=== PATIENT | male | born 1955 | race Caucasian/White ===

== ENCOUNTER 2016-09-22 07:45 | Inpatient (IN) | payer BC ==
--- NOTE | 2016-09-08 11:10 | DIAGNOSTIC IMAGING REPORT ---
CHEST 2 VIEWS ROUTINE CLINICAL HISTORY: Preoperative chest COMPARISON STUDY: No previous studies for comparison. FINDINGS: The cardiac and mediastinal contours are normal. There is no evidence of focal pulmonary consolidation. There is no evidence of failure. No pleural effusions are visualized.[ IMPRESSION: No active disease in the chest. Electronically signed by: Clifford Krause M.D. 09/08/2016 11:08 AM Dictated Date/Time: 09/08/2016 11:08 AM
[2016-09-08 12:24] LABS: BASO % 0.3 %; BASO ABS # 0.02 K/uL (0-0.2); COMPLETE YES; EOS % 1.8 %; HEMATOCRIT 46.3 % (42-52); IG% 0.1 %; LYMPH % 28.7 %; LYMPH ABS # 1.92 K/uL (1.2-3.4); MEAN CELL VOLUME 95.5 fL (80-100); MEAN CORPUSCULAR HEMOGLOBIN 33.2 pg (25-34); MEAN CORPUSCULAR HGB CONC 34.8 g/dl (32-36); MEAN PLATELET VOLUME 10.1 fL (7.4-10.4); MONO % 7.8 %; NEUT % 61.3 %; PLATELET COUNT 247 K/uL (130-400); RED BLOOD COUNT 4.85 M/uL (4.7-6.1)
[2016-09-08 12:31] LABS: URINE APPEARANCE CLEAR (CLEAR); URINE BILIRUBIN NEG (NEG); URINE COLOR YELLOW; URINE EPITHELIAL CELL AUTO 0-5 /lpf (0-5); URINE NITRITE NEG (NEG); URINE PH 5.5 (4.5-7.5); URINE SPECIFIC GRAVITY 1.018 (1.000-1.030); UROBILINOGEN NEG (NEG)
[2016-09-08 12:39] LABS: MANUAL MICROSCOPIC REQUIRED? NO; REVIEW REQ? NO
[2016-09-08 12:51] LABS: BLOOD UREA NITROGEN 14 mg/dl (7-18); BUN/CREATININE RATIO 12.6 (10-20); CARBON DIOXIDE 31 mmol/L (21-32); CHLORIDE 107 mmol/L (98-107); GLUCOSE 94 mg/dl (70-99); POTASSIUM 3.9 mmol/L (3.5-5.1); SODIUM 144 mmol/L (136-145)
[2016-09-09 12:31] VITALS: Ht 177.8 cm; Wt 118.2 kg
--- NOTE | 2016-09-21 14:15 | HISTORY & PHYSICAL EXAMINATION ---
DATE OF ADMISSION: 09/22/2016 HISTORY OF PRESENT ILLNESS: The patient is well known to us as he has undergone prior lumbar decompression and fusion. He has continued to struggle with bilateral leg pain for many years as well as chronic back pain. He has undergone several injections with pain management. He has trialed several medications, none of which have provided relief. He denies bowel or bladder dysfunction. He has trialed physical therapy. He has had a neurology evaluation and then went for a second opinion to [facility]. He is on Neurontin for pain control. He is most comfortable lying down and alternating ice and heat. PAST MEDICAL HISTORY: The patient's medical history is significant for enlarged prostate, depression, sleep apnea, spinal stenosis, thyroid disease. PAST SURGICAL HISTORY: Significant for lumbar fusion [place] [address] Kimbrough, partial knee replacement and prostate surgery 2016. ALLERGIES: None listed. MEDICATIONS: Include: 1. Hydrochlorothiazide 25 mg a day. 2. Metoprolol 25 mg twice a day. 3. Gabapentin 600 mg t.i.d. 4. Tramadol as needed. 5. Bupropion XL 300 mg a day. 6. Synthroid 75 mcg a day. 7. Vitamin D3. 8. Vitamin C. 9. Ginkgo biloba. 10. Buspirone 30 mg a day. 11. Vitamin B12. 12. Cialis daily. 13. Mirtazapine 50 mg daily. 14. Ativan 1 mg at night. 15. Atorvastatin 10 mg a day. 16. Olanzapine 10 mg daily. SOCIAL HISTORY: He is still working as a elementary special education teacher for [employer] . FAMILY HISTORY: Significant for arthritis, cardiovascular disease, cancer, hypertension, thyroid disease. SOCIAL HISTORY: He is , drinks beer monthly. Tobacco is none. Drug use he denies. REVIEW OF SYSTEMS: Significant for anxiety, depression, leg swelling, ringing in the ears, nasal congestion, diarrhea, memory loss, muscle coordination, back pain. PHYSICAL EXAMINATION: VITAL SIGNS: 5 feet 10. HEAD, EYES, EARS, NOSE, AND THROAT: Speech appropriate. CARDIOPULMONARY: No gross abnormalities. ABDOMEN: Soft, nontender. GENITOURINARY: Deferred. NEUROLOGIC: Cranial nerves II-XII are grossly intact. MUSCULOSKELETAL: He has a well-healed lumbar incision. Strength is intact bilateral lower extremities. ASSESSMENT: Chronic leg pain and back pain. PLAN: At this point in time he has known peripheral neuropathy as well as bilateral leg pain and back pain. He is interested in pursuing a dorsal column stimulator trial with subsequent implant if this is successful. Risks, benefits, pros, cons and alternative outlined in detail. He would like to proceed with the above-mentioned planning. DANIEL
[2016-09-22] VITALS (8 sets, daily range): BP systolic 118–158; BP diastolic 74–94; PULSE 62–96; TEMP 36.3–37.1; O2SAT 93–94
[~2016-09-22] VITALS: Ht 177.8 cm; Wt 118.2 kg
[~2016-09-22 07:45] MED LIST: AMIT25TA9 PO; ASCA500 PO; ATOR10TA82 PO; BUPRTAB51 PO; BUSP30TA2 PO; CEFAZOLIN 2000 MG/60 ML D5W IV SCH; CHOL20007 PO; CYAN100020 PO; HYG/25 PO; LACTATED RINGER'S 1000ML 1,000 ML IV SCH; METO25TA56 PO; MIRT15TA2 PO; NRN/600 PO; OLAN10TA11 PO; SYN75 PO; TADA5TAB11 PO; TRAM-10 PO
[2016-09-22] MEDS ORDERED: BUPIVACAINE/EPINEPHRINE 0.5% MPF 1:200,000 30 ML VIAL ONE (08:57)
[2016-09-22] MEDS ORDERED: BACITRACIN 50000 UNIT VIAL ONE (08:57)
[2016-09-22] MEDS ORDERED: SODIUM CHLORIDE 0.9% PF 50 ML VIAL ONE (08:57)
[2016-09-22] MEDS ORDERED: FENTANYL CITRATE INJ 50 MCG/1 ML 2 ML VIAL ONE ×3 (08:58→15:02)
[2016-09-22] MEDS ORDERED: MIDAZOLAM HCL 1 MG/ML 2ML VIAL ONE (08:58)
[2016-09-22] MEDS ORDERED: ATROPINE SULFATE 0.1 MG/ML 5ML SYR IV PRN (09:30)
[2016-09-22] MEDS ORDERED: EpHEDrine SULFATE INJ 50 MG/ML AMP IV PRN (09:30)
[2016-09-22] MEDS ORDERED: PROMETHAZINE HCL INJ 6.25 MG in SODIUM CHLORIDE 0.9% 50ML 50 ML IV PRN (09:30)
[2016-09-22] MEDS ORDERED: ONDANSETRON INJ 2 MG/ML 2 ML VIAL IV PRN (09:30)
[2016-09-22] MEDS ORDERED: HYDROmorphone INJ 2 MG/ML SYR/VIAL ONE (10:04)
[2016-09-22] MEDS ORDERED: DEXAMETHASONE SOD INJ 4 MG/ML VIAL ONE (10:16)
[2016-09-22] MEDS ORDERED: GLYCOPYRROLATE INJ 0.2 MG/ML VIAL ONE (10:16)
[2016-09-22] MEDS ORDERED: KETOROLAC TROMETHAMINE 30 MG/ML VIAL ONE (10:16)
[2016-09-22] MEDS ORDERED: LIDOCAINE HCL 2% 2 ML VIAL (20MG/ML) ONE (10:16)
[2016-09-22] MEDS ORDERED: ONDANSETRON INJ 2 MG/ML 2 ML VIAL ONE (10:16)
[2016-09-22] MEDS ORDERED: NEOSTIGMINE METHYLSULFATE 1 MG/ML 10ML VIAL ONE (10:16)
[2016-09-22] MEDS ORDERED: PROPOFOL IV EMULSION 10 MG/ML 20 ML VIAL IV ONE (10:16)
[2016-09-22] MEDS ORDERED: ROCURONIUM BROMIDE 10 MG/ML 5 ML VIAL ONE (10:16)
[2016-09-22] MEDS ORDERED: FLOSEAL HEMOSTATIC MATRIX 5ML TOP ONE ×2 (10:21)
--- NOTE | 2016-09-22 10:31 | DIAGNOSTIC IMAGING REPORT ---
LUMBAR SPINE, INTRAOPERATIVE FLUOROSCOPY HISTORY: Pain. Bilateral stimulator placement.. FLUOROSCOPY TIME: 4 seconds. FINDINGS: Intraoperative fluoroscopy was provided for the lumbar spine. 1 fluoroscopic spot images were obtained. IMPRESSION: Fluoroscopy provided for a low thoracic stimulator placement. Electronically signed by: Christopher Bauer M.D. 09/22/2016 10:29 AM Dictated Date/Time: 09/22/2016 10:29 AM
--- NOTE | 2016-09-22 10:36 | [facility] Post Operative Brief Note ---
Immediate Operative Summary Operative Date September 22, 2016. Pre-Operative Diagnosis Chronic leg pain and back pain Post-Operative Diagnosis Chronic leg pain and back pain Procedure(s) Performed Spinal Cord Stimulator Trial Surgeon Dr. Skyler Kimbrough Director Multimedia Surgeon(s) Mendy Giraldo PA-C Estimated Blood Loss 10 Findings stenosis Specimens None per surgeon
[2016-09-22] MEDS ORDERED: DO NOT ADMINISTER PNEUMOCOCCAL VACCINE PRN ×2 (10:45)
[2016-09-22] MEDS ORDERED: ACETAMINOPHEN 325 MG TAB PO PRN (10:45)
[2016-09-22] MEDS ORDERED: LORAZEPAM INJ 1 MG in SYRINGE 0 ML IV PRN (10:45)
[2016-09-22] MEDS ORDERED: DO NOT ADMINISTER FLU VACCINE PRN ×3 (10:45)
[2016-09-22] MEDS ORDERED: ACETAMINOPHEN 500 MG TAB PO PRN (10:45)
[2016-09-22] MEDS ORDERED: LABETALOL HCL IV 5 MG/ML 20ML IV ONE (10:48)
[2016-09-22] MEDS: FENTANYL CITRATE INJ 50 MCG/1 ML 2 ML VIAL IV PRN ×3 (11:06→11:20)
[2016-09-22] MEDS ORDERED: HYDROmorphone INJ 2 MG/ML SYR/VIAL IV PRN (12:00)
--- NOTE | 2016-09-22 12:08 | Anesthesiology Progress Note ---
Anesthesia Post Op Note Date & Time September 22, 2016 at 12:07 Vital Signs Pain Intensity: 5 Vital Signs Past 12 Hours Date Time Temp Pulse Resp B/P Pulse Ox O2 Delivery O2 Flow Rate FiO2 09/22/16 11:45 37.4 79 16 140/95 94 Nasal Cannula 3 09/22/16 11:35 77 17 168/103 95 Nasal Cannula 3 09/22/16 11:25 76 17 175/108 94 Nasal Cannula 3 09/22/16 11:15 72 12 173/114 99 Mask 10 09/22/16 11:05 72 16 180/119 99 Mask 10 09/22/16 10:55 70 12 191/126 99 Mask 10 09/22/16 10:46 37.2 74 16 177/107 99 Mask 10 09/22/16 08:07 36.6 62 18 141/94 Notes Mental Status: alert / awake / arousable, participated in evaluation Pt Amnestic to Procedure: Yes Nausea / Vomiting: adequately controlled Pain: adequately controlled Airway Patency, RR, SpO2: stable & adequate BP & HR: stable & adequate Hydration State: stable & adequate Anesthetic Complications: no major complications apparent Patient required Labetalol and Hydralazine in pacu to manage high diastolic BP. Bladder scan was done rule out distended bladder. Patient was asymptomatic. At the time of disposition to floor his diastolic BP was managed <100 mmHg
[2016-09-22] MEDS: SODIUM CHLORIDE 0.9% 1000ML 1,000 ML IV SCH (12:31)
--- NOTE | 2016-09-22 12:33 | OPERATIVE REPORT ---
DATE OF OPERATION: 09/22/2016 PREOPERATIVE DIAGNOSES: Chronic back and bilateral leg pain. POSTOPERATIVE DIAGNOSIS: Same. PROCEDURE PERFORMED: 1. T10 laminotomy. 2. Placement of 16 lead dorsal column stimulator paddle with temporary leads. SURGEON: Dr. Skyler Kimbrough. SWIMMING POOL MAINTENANCE SUPERVISOR: Mendy Giraldo PA-C. Due to the complex nature of the procedure, the entire surgery was performed with the diversional therapist's assistant of Mendy Giraldo PA-C. The assistant manager retail, under direct supervision, was involved in the actual performance of all aspects of the surgical procedure including hemostasis, tissue retraction and incision, instrument management, patient positioning, and wound closure. ANESTHESIA: General. DISPOSITION: The patient awakened and taken to PACU in stable condition. HISTORY OF PATIENT'S PROBLEMS: This is a 61-year-old male well known to me that presents with above-mentioned diagnosis. After failing extensive course of nonoperative care, elected to undergo the above-mentioned procedure. Risks, benefits, pros, cons, and alternatives were outlined in detail preoperatively. OPERATION AND FINDINGS: PROCEDURE: The patient was met preoperatively, case discussed and all questions were addressed. At that point the patient was taken back to operative suite and after undergoing successful general intubation by the department of anesthesia was placed in prone position on Shilo table atop Brett frame. All bony prominences were well padded and the eyes were inspected to ensure there was no external pressure placed upon them. At this point the thoracolumbar spine was prepped and draped in normal sterile fashion. With the assistance of fluoroscopy identified the T10-T11 region of the spine and elected to go with T11 laminotomy so the paddle lead would cover the most vital components of the cord to control his back and leg symptoms. Sharp dissection with the assistance of Bovie cautery was performed down to and exposing the T11-T12 disc interlaminar space. It then performed a T11 laminotomy wide enough to place a 16 dorsal column stimulator paddle lead in the canal. This was passed approximately, verified its position with fluoroscopy such that the center portion of the paddle was directly across the T9-T10 disc space. After this was complete, the permanent leads were sewn into place with silk ties. We then attached temporary leads to the prior leads, ran these to the left flank through a trocar, tested the leads to ensure they were working appropriately and then buried the permanent leads in the T11 laminotomy site closing this incision. External leads were placed. Sterile dressings were placed both across external leads and the midline incision. The patient was then awakened and taken to PACU in stable condition. I attest to the content of the Intraoperative Record and any orders documented therein. Any exceptio ns are noted below.
[2016-09-22] MEDS: TRAMADOL HCL 50 MG TAB PO PRN (13:16)
[2016-09-22] MEDS: GABAPENTIN 600 MG TAB PO SCH ×2 (13:23→22:05)
[2016-09-22] MEDS ORDERED: CEFAZOLIN SOD 1 GM VIAL ONE (14:39)
[2016-09-22] MEDS: HYDROmorphone INJ 1 MG/ML SYR IV PRN (15:43)
[2016-09-22] MEDS: OXYCODONE HCL IR 5 MG TAB (IMMEDIATE RELEASE) PO PRN ×2 (16:47→17:02)
[2016-09-22] MEDS: CEFAZOLIN IV 2,000 MG in DEXTROSE 5% 50ML 50 ML IV SCH (18:15)
[2016-09-22] MEDS: DOCUSATE SODIUM 100 MG CAP PO SCH (22:05)
[2016-09-22] MEDS: AMITRIPTYLINE HCL 25 MG TAB PO SCH (22:05)
[2016-09-22] MEDS: METOPROLOL TARTRATE 25 MG TAB PO SCH (22:05)
[2016-09-23 00:20] VITALS: BP 130/75; PULSE 84; TEMP 36.8; O2SAT 96
[2016-09-23] MEDS: SODIUM CHLORIDE 0.9% 1000ML 1,000 ML IV SCH (00:27)
[2016-09-23] MEDS: HYDROmorphone INJ 1 MG/ML SYR IV PRN ×2 (01:56→15:22)
[2016-09-23] MEDS: CEFAZOLIN IV 2,000 MG in DEXTROSE 5% 50ML 50 ML IV SCH ×2 (01:59→09:45)
[2016-09-23 03:20] VITALS: BP 130/80; PULSE 76; TEMP 36.9; O2SAT 89
[2016-09-23 03:23] VITALS: O2SAT 94
[2016-09-23 05:15] VITALS: BP 155/99; PULSE 70; TEMP 36.7; O2SAT 96
[2016-09-23] MEDS: LEVOTHYROXINE 75 MCG TAB PO SCH (05:51)
[2016-09-23] MEDS: OXYCODONE HCL IR 5 MG TAB (IMMEDIATE RELEASE) PO PRN ×3 (05:52→21:13)
--- NOTE | 2016-09-23 08:52 | PROGRESS NOTE ---
DATE: 09/23/2016 HISTORY OF PRESENT ILLNESS: He is having some difficulty with urination today and some modest urinary retention. He has some lower abdominal discomfort. He is using a walker to ambulate. He states his legs feel a little wobbly to him. He denies any numbness or tingling in the lower extremities. Denies any leg pain or significant back discomfort. PHYSICAL EXAMINATION: He has excellent strength to testing, normal reflexes, no clonus. He is walking with a walker. ASSESSMENT: Status post placement of a spinal cord stimulator trail. PLAN: At this time, we will have the spinal cord stimulator tech see the patient today to see if there is some adjustments to the paddle will relieve his symptoms and decrease abdominal pain. We may have to consider removal of the implant if he does not improve tomorrow. He is n.p.o. after midnight. We are hoping that we will be able to progress with an implant. He is very anxious to see if this would improve his back and leg pain.
[2016-09-23] MEDS: OLANZAPINE 10 MG TAB PO SCH (09:04)
[2016-09-23] MEDS: ATORVASTATIN 10 MG TAB PO SCH (09:05)
[2016-09-23] MEDS: DOCUSATE SODIUM 100 MG CAP PO SCH ×2 (09:05→21:11)
[2016-09-23] MEDS: METOPROLOL TARTRATE 25 MG TAB PO SCH ×2 (09:05→21:11)
[2016-09-23] MEDS: BusPIRone 15 MG TAB PO SCH (09:05)
[2016-09-23] MEDS: GABAPENTIN 600 MG TAB PO SCH ×3 (09:06→21:11)
[2016-09-23] MEDS: BuPROPion XL 300 MG TABCR PO SCH (09:06)
--- NOTE | 2016-09-23 10:41 | Anesthesiology Progress Note ---
Anesthesia Post Op Note Date & Time September 23, 2016 at 10:41 Vital Signs Vital Signs Past 12 Hours Date Time Temp Pulse Resp B/P Pulse Ox O2 Delivery O2 Flow Rate FiO2 09/23/16 07:30 Room Air 09/23/16 05:15 36.7 70 16 155/99 96 Room Air 09/23/16 03:23 94 Nasal Cannula 2.0 09/23/16 03:20 36.9 76 16 130/80 89 Room Air 09/23/16 00:25 Nasal Cannula 2.0 09/23/16 00:20 36.8 84 16 130/75 96 Nasal Cannula 2.0 Notes Mental Status: alert / awake / arousable, participated in evaluation Pt Amnestic to Procedure: Yes Nausea / Vomiting: adequately controlled Pain: adequately controlled Airway Patency, RR, SpO2: stable & adequate BP & HR: stable & adequate Hydration State: stable & adequate Anesthetic Complications: no major complications apparent
[2016-09-23 16:14] VITALS: BP 177/96; PULSE 69; TEMP 37.2; O2SAT 96
[2016-09-23] MEDS: AMITRIPTYLINE HCL 25 MG TAB PO SCH (21:11)
[2016-09-23] MEDS: TRAMADOL HCL 50 MG TAB PO PRN (22:23)
[2016-09-23 23:44] VITALS: BP 128/77; PULSE 82; TEMP 36.8; O2SAT 93
[2016-09-24] VITALS (7 sets, daily range): BP systolic 117–149; BP diastolic 74–90; PULSE 73–97; TEMP 36.7–37; O2SAT 90–97
[2016-09-24] MEDS: HYDROmorphone INJ 1 MG/ML SYR IV PRN ×2 (00:14→05:47)
[2016-09-24] MEDS: LEVOTHYROXINE 75 MCG TAB PO SCH (05:45)
[2016-09-24] MEDS ORDERED: BISACODYL 10 MG SUPP PR PRN (06:00)
--- NOTE | 2016-09-24 07:13 | History & Physical Bridge Note ---
H&P Re-Evaluation Bridge Note: I have examined the patient, reviewed the History & Physical and in the interval since the performance of the History & Physical I have noted the following changes of clinical significance: No changes noted revision trial possible removal of stim.
[2016-09-24] MEDS ORDERED: MIDAZOLAM HCL 1 MG/ML 2ML VIAL ONE ×2 (07:53→09:17)
[2016-09-24] MEDS ORDERED: FENTANYL CITRATE INJ 50 MCG/1 ML 2 ML VIAL ONE ×2 (07:53→09:17)
[2016-09-24] MEDS ORDERED: CEFAZOLIN IV 2,000 MG/60 ML D5W IV ONE (08:17)
[2016-09-24] MEDS ORDERED: BUPIVACAINE/EPINEPHRINE 0.5% MPF 1:200,000 30 ML VIAL ONE ×2 (08:37→08:58)
[2016-09-24] MEDS ORDERED: BACITRACIN 50000 UNIT VIAL ONE (08:37)
[2016-09-24] MEDS ORDERED: EpHEDrine SULFATE INJ 50 MG/ML AMP IV PRN (08:45)
[2016-09-24] MEDS ORDERED: ONDANSETRON INJ 2 MG/ML 2 ML VIAL IV PRN ×2 (08:45→10:45)
[2016-09-24] MEDS ORDERED: HYDROmorphone INJ 1 MG/ML SYR IV PRN ×2 (08:45→10:45)
[2016-09-24] MEDS ORDERED: FENTANYL CITRATE INJ 50 MCG/1 ML 2 ML VIAL IV PRN (08:45)
[2016-09-24] MEDS ORDERED: ATROPINE SULFATE 0.1 MG/ML 5ML SYR IV PRN (08:45)
[2016-09-24] MEDS: BuPROPion XL 300 MG TABCR PO SCH (09:00)
[2016-09-24] MEDS: ATORVASTATIN 10 MG TAB PO SCH (09:00)
[2016-09-24] MEDS: GABAPENTIN 600 MG TAB PO SCH ×3 (09:00→21:17)
[2016-09-24] MEDS: DOCUSATE SODIUM 100 MG CAP PO SCH ×2 (09:00→21:17)
[2016-09-24] MEDS: BusPIRone 15 MG TAB PO SCH (09:00)
[2016-09-24] MEDS: POLYETHYLENE (MIRALAX) 17 GM PACK PO SCH (09:00)
[2016-09-24] MEDS: OLANZAPINE 10 MG TAB PO SCH (09:00)
[2016-09-24] MEDS: METOPROLOL TARTRATE 25 MG TAB PO SCH ×2 (09:00→21:17)
[2016-09-24] MEDS ORDERED: HYDROmorphone INJ 2 MG/ML SYR/VIAL ONE ×2 (09:23→10:52)
[2016-09-24] MEDS ORDERED: FLOSEAL HEMOSTATIC MATRIX 10ML TOP ONE (10:35)
--- NOTE | 2016-09-24 10:42 | [facility] Operative Report ---
Operative Report Operative Date September 24, 2016. Pre-Operative Diagnosis Chronic back and leg pain Surgeon Dr. Kimbrough Fruit Harvest Worker Surgeon(s) Prem Whaley PA-C Estimated Blood Loss 10 Findings stenosis Specimens None per surgeon I attest to the content of the Intraoperative Record and any orders documented therein. Any exceptions are noted below.
[2016-09-24] MEDS ORDERED: ACETAMINOPHEN 500 MG TAB PO PRN (10:45)
[2016-09-24] MEDS ORDERED: ACETAMINOPHEN 325 MG TAB PO PRN (10:45)
[2016-09-24] MEDS ORDERED: MAGNESIUM HYDROXIDE SUSP 30 ML UDC PO PRN (10:45)
[2016-09-24] MEDS ORDERED: DO NOT ADMINISTER FLU VACCINE PRN ×3 (10:45)
[2016-09-24] MEDS ORDERED: LORAZEPAM 1 MG TAB PO PRN (10:45)
[2016-09-24] MEDS ORDERED: LORAZEPAM INJ 1 MG in SYRINGE 0 ML IV PRN (10:45)
[2016-09-24] MEDS ORDERED: OXYCODONE HCL IR 5 MG TAB (IMMEDIATE RELEASE) PO PRN (10:45)
[2016-09-24] MEDS ORDERED: DO NOT ADMINISTER PNEUMOCOCCAL VACCINE PRN ×2 (10:45)
--- NOTE | 2016-09-24 10:45 | DIAGNOSTIC IMAGING REPORT ---
INTRAOPERATIVE RADIOGRAPH CLINICAL HISTORY: Spinal cord stimulator lead placement. Fluoroscopy time: 4 seconds. FINDINGS: A single spot fluoroscopic view of the lower thoracic spine is presented. A spinal stimulator lead projects over the lower thoracic spine. IMPRESSION: Intraoperative image from spinal stimulator lead placement as above. See operative report for detailed findings. Electronically signed by: Martinez John M.D. 09/24/2016 10:44 AM Dictated Date/Time: 09/24/2016 10:42 AM
[2016-09-24] MEDS ORDERED: METOPROLOL TARTRATE 1 MG/ML VIAL ONE (10:49)
[2016-09-24] MEDS ORDERED: ONDANSETRON INJ 2 MG/ML 2 ML VIAL ONE (10:49)
[2016-09-24] MEDS ORDERED: KETOROLAC TROMETHAMINE 30 MG/ML VIAL ONE (10:49)
--- NOTE | 2016-09-24 11:24 | OPERATIVE REPORT ---
DATE OF OPERATION: 09/24/2016 PREOPERATIVE DIAGNOSIS: Chronic persistent back pain with spinal cord stimulator trial. POSTOPERATIVE DIAGNOSIS: Same. PROCEDURE PERFORMED: 1. Revision spinal cord stimulator trial. 2. Thoracic decompression T9-10, T10-11, T11-12. 3. Placement of 16 lead stimulator paddle. SURGEON: Dr. Skyler Kimbrough. ACCT EXEC: Evangelist Whaley PA-C. Due to the complex nature of the procedure, the entire surgery was performed with the business support assistant of Evangelist Whaley PA-C. The physicians assistant, under direct supervision, was involved in the actual performance of all aspects of the surgical procedure including hemostasis, tissue retraction and incision, instrument management, patient positioning, and wound closure. ANESTHESIA: Local with sedation. DISPOSITION: The patient awakened and taken to PACU in stable condition. HISTORY OF PATIENT'S PROBLEMS: This is a 61-year-old male that is status post dorsal column stimulator trial on Tuesday. Unfortunately, postoperatively he began experiencing some coordination deficits in his legs though the stim was appropriately covering his pain patterns. Upon discussion, we elected to trial another attempt at the implant at this time performing a wide multilevel decompression so that there is additional space for the trial paddle lead. I agree with this plan. We elected to do this under sedation so we could converse with him throughout the procedure. Risks, benefits, pros, cons, and alternatives were outlined in detail preoperatively. OPERATION AND FINDINGS: PROCEDURE: The patient was met preoperatively and the case discussed and all questions were addressed. At that point the patient back to operative suite and after undergoing modest sedation was placed in prone position on Shilo table on top of the Brett frame. All bony prominences were well padded and the eyes were inspected to ensure there was no external pressure placed upon them. At this point the thoracic spine was prepped and draped in normal sterile fashion. We then infiltrated the skin with lidocaine with epinephrine from T9-T12. We did utilize a portion of the previous incision site and extended this proximally to T9. We then exposed lamina of 9, 10, 11, 12. I removed the previously placed 16 lead paddle, extended the laminotomy site at 11-12 proximally leaving approximately 4 mm of bony bridge of the lamina of T11. I then performed a complete laminectomy of T10 to the facets bilaterally and partial laminectomy of T9. This allowed us to place the 16 lead paddle lead in position being held down to a small bony in the tip of the paddle lead just under the lamina of T9. We tested it several times with the patient, he had excellent results. The leads were then sewn into position, a 10 round BEE drain inserted. Incision was closed with 1-0 Vicryl in the fascia, 2-0 Vicryl subcutaneously, 4-0 Monocryl for final skin closure. Steri-Strips and sterile dressing was placed. The patient taken to PACU in a stable condition. I attest to the content of the Intraoperative Record and any orders documented therein. Any exceptio ns are noted below.
--- NOTE | 2016-09-24 11:54 | Anesthesiology Progress Note ---
Anesthesia Post Op Note Date & Time September 24, 2016 at 11:55 Vital Signs Pain Intensity: 0 Vital Signs Past 12 Hours Date Time Temp Pulse Resp B/P Pulse Ox O2 Delivery O2 Flow Rate FiO2 09/24/16 11:45 110/74 09/24/16 11:42 75 11 96 09/24/16 11:42 69 10 97 09/24/16 11:40 127/72 09/24/16 11:37 73 14 09/24/16 11:37 73 14 96 09/24/16 11:35 118/83 09/24/16 11:31 70 12 09/24/16 11:31 70 12 96 09/24/16 11:30 128/77 09/24/16 11:27 36.6 72 16 128/77 96 Nasal Cannula 2 09/24/16 11:25 71 15 96 09/24/16 11:25 71 20 126/87 96 09/24/16 11:24 71 17 95 09/24/16 11:24 72 17 09/24/16 11:20 131/87 09/24/16 11:15 124/88 09/24/16 11:14 74 21 95 09/24/16 11:14 73 17 96 09/24/16 11:10 130/87 09/24/16 11:05 126/74 09/24/16 11:04 36.4 71 16 132/94 97 Nasal Cannula 2 09/24/16 11:04 71 13 09/24/16 11:04 71 13 132/94 98 09/24/16 07:15 Room Air 09/24/16 07:11 36.7 73 19 127/86 09/24/16 00:15 Room Air Notes Mental Status: alert / awake / arousable, participated in evaluation Pt Amnestic to Procedure: Yes Nausea / Vomiting: adequately controlled Pain: adequately controlled Airway Patency, RR, SpO2: stable & adequate BP & HR: stable & adequate Hydration State: stable & adequate Anesthetic Complications: no major complications apparent
[2016-09-24] MEDS: SODIUM CHLORIDE 0.9% 1000ML 1,000 ML IV SCH ×2 (11:59→23:34)
[2016-09-24] MEDS: DEXAMETHASONE INJ 6 MG in SYRINGE 0 ML IV SCH ×2 (13:32→22:02)
[2016-09-24] MEDS: CEFAZOLIN IV 2,000 MG in DEXTROSE 5% 50ML 50 ML IV SCH ×2 (16:05→23:34)
[2016-09-24] MEDS ORDERED: DOCUSATE SODIUM 100 MG CAP PO SCH (21:00)
[2016-09-24] MEDS: AMITRIPTYLINE HCL 25 MG TAB PO SCH (21:17)
[2016-09-24] MEDS: TRAMADOL HCL 50 MG TAB PO PRN (22:09)
[2016-09-24] MEDS: OXYCODONE HCL IR 5 MG TAB (IMMEDIATE RELEASE) PO PRN (23:53)
[2016-09-25 02:50] VITALS: BP 152/89; PULSE 72; TEMP 37; O2SAT 93
[2016-09-25] MEDS: DEXAMETHASONE INJ 6 MG in SYRINGE 0 ML IV SCH (05:25)
[2016-09-25] MEDS: BISACODYL 5 MG TABEC PO PRN (05:26)
[2016-09-25] MEDS: OXYCODONE HCL IR 5 MG TAB (IMMEDIATE RELEASE) PO PRN (05:26)
[2016-09-25] MEDS: LEVOTHYROXINE 75 MCG TAB PO SCH (05:26)
[2016-09-25 07:30] VITALS: BP 138/92; PULSE 86; TEMP 36.5; O2SAT 92
[2016-09-25] MEDS: CEFAZOLIN IV 2,000 MG in DEXTROSE 5% 50ML 50 ML IV SCH (08:23)
[2016-09-25 08:30] VITALS: O2SAT 92
[2016-09-25] MEDS: METOPROLOL TARTRATE 25 MG TAB PO SCH ×2 (09:05→22:01)
[2016-09-25] MEDS: POLYETHYLENE (MIRALAX) 17 GM PACK PO SCH (09:05)
[2016-09-25] MEDS: DOCUSATE SODIUM 100 MG CAP PO SCH ×2 (09:05→22:01)
[2016-09-25] MEDS: GABAPENTIN 600 MG TAB PO SCH ×3 (09:06→22:02)
[2016-09-25] MEDS: ATORVASTATIN 10 MG TAB PO SCH (09:06)
[2016-09-25] MEDS: OLANZAPINE 10 MG TAB PO SCH (09:06)
[2016-09-25] MEDS: BuPROPion XL 300 MG TABCR PO SCH (09:06)
[2016-09-25] MEDS: BusPIRone 15 MG TAB PO SCH (09:07)
--- NOTE | 2016-09-25 10:31 | PROGRESS NOTE ---
DATE: 09/25/2016 DATE: 09/25/2016. SUBJECTIVE: Leg symptoms are well controlled with stimulator. He feels his leg function is markedly improved. Vital signs are stable. T-max 37.0. BEE drained 30 mL. OBJECTIVE: On exam, I did have him stand and ambulate about the room. He does use a walker, but not relying on it like he was previously. He states his legs are much stronger today. He has good strength to testing. ASSESSMENT: Status post revision dorsal column stimulator placement. PLAN: At this time, will reassess him Tuesday. If he continues to improve, we will most likely plan for permanent implant and battery placement on Tuesday.
[2016-09-25 11:35] VITALS: BP 158/93; PULSE 73; TEMP 36.5; O2SAT 93
[2016-09-25 15:38] VITALS: BP 158/92; PULSE 74; TEMP 36.8; O2SAT 93
[2016-09-25] MEDS: TRAMADOL HCL 50 MG TAB PO PRN (16:42)
[2016-09-25] MEDS: LORAZEPAM 1 MG TAB PO PRN (16:42)
[2016-09-25] MEDS: MAGNESIUM HYDROXIDE SUSP 30 ML UDC PO PRN (16:51)
[2016-09-25 19:10] VITALS: BP 168/96; PULSE 74; TEMP 37.2; O2SAT 93
[2016-09-25] MEDS: AMITRIPTYLINE HCL 25 MG TAB PO SCH (22:01)
[2016-09-26 00:03] VITALS: BP 146/86; PULSE 78; TEMP 36.5; O2SAT 93
[2016-09-26] MEDS: BISACODYL 5 MG TABEC PO PRN (05:56)
[2016-09-26] MEDS: LEVOTHYROXINE 75 MCG TAB PO SCH (05:56)
[2016-09-26] MEDS ORDERED: BISACODYL 10 MG SUPP PR PRN (06:00)
[2016-09-26] MEDS ORDERED: BISACODYL 5 MG TABEC PO PRN (06:00)
[2016-09-26 07:41] VITALS: BP 154/97; PULSE 68; TEMP 36.4; O2SAT 94
[2016-09-26] MEDS: DOCUSATE SODIUM 100 MG CAP PO SCH ×2 (09:00→21:05)
[2016-09-26] MEDS: ATORVASTATIN 10 MG TAB PO SCH (09:00)
[2016-09-26] MEDS: METOPROLOL TARTRATE 25 MG TAB PO SCH ×2 (09:00→21:05)
[2016-09-26] MEDS: BusPIRone 15 MG TAB PO SCH (09:00)
[2016-09-26] MEDS: POLYETHYLENE (MIRALAX) 17 GM PACK PO SCH (09:00)
[2016-09-26] MEDS: GABAPENTIN 600 MG TAB PO SCH ×3 (09:01→21:05)
[2016-09-26] MEDS: OLANZAPINE 10 MG TAB PO SCH (09:01)
[2016-09-26] MEDS: BuPROPion XL 300 MG TABCR PO SCH (09:01)
[2016-09-26] MEDS ORDERED: BISACODYL 10 MG SUPP PR STA (12:19)
--- NOTE | 2016-09-26 13:50 | PROGRESS NOTE ---
DATE: 09/26/2016 DATE: 09/26/2016. Mr. Trejo is improving steadily. He is ambulating quite nicely, using a walker more just for additional comfort and safety, but not relying on it. Again, leg symptoms well controlled. We had a long discussion today with his family and the patient, we are going to make him n.p.o. after midnight and plan for implantation of formal leads and battery tomorrow. He will be made n.p.o. after midnight.
[2016-09-26 15:07] VITALS: BP 111/72; PULSE 73; TEMP 36.6; O2SAT 94
[2016-09-26] MEDS: MAGNESIUM HYDROXIDE SUSP 30 ML UDC PO PRN (19:01)
[2016-09-26 21:03] VITALS: BP 125/79; PULSE 78
[2016-09-26] MEDS: AMITRIPTYLINE HCL 25 MG TAB PO SCH (21:05)
[2016-09-26 23:10] VITALS: BP 129/87; PULSE 64; TEMP 36.8; O2SAT 93
[2016-09-27] VITALS (11 sets, daily range): BP systolic 104–141; BP diastolic 65–85; PULSE 69–100; TEMP 36.5–36.7; O2SAT 89–94
[2016-09-27] MEDS: LEVOTHYROXINE 75 MCG TAB PO SCH (05:10)
[2016-09-27] MEDS ORDERED: FENTANYL CITRATE INJ 50 MCG/1 ML 2 ML VIAL ONE ×2 (06:41→08:04)
[2016-09-27] MEDS ORDERED: MIDAZOLAM HCL 1 MG/ML 2ML VIAL ONE (06:41)
--- NOTE | 2016-09-27 07:19 | Anesthesiology Progress Note ---
Anesthesia Post Op Note Date & Time September 27, 2016 at 07:19 Vital Signs Pain Intensity: 3.0 Vital Signs Past 12 Hours Date Time Temp Pulse Resp B/P Pulse Ox O2 Delivery O2 Flow Rate FiO2 09/27/16 06:32 36.7 69 16 127/84 92 Room Air 09/26/16 23:13 Room Air 09/26/16 23:10 36.8 64 18 129/87 93 Room Air 09/26/16 21:03 78 125/79 Notes Mental Status: alert / awake / arousable, participated in evaluation Pt Amnestic to Procedure: Yes Nausea / Vomiting: adequately controlled Pain: adequately controlled Airway Patency, RR, SpO2: stable & adequate BP & HR: stable & adequate Hydration State: stable & adequate Anesthetic Complications: no major complications apparent
--- NOTE | 2016-09-27 07:26 | History & Physical Bridge Note ---
H&P Re-Evaluation Bridge Note: I have examined the patient, reviewed the History & Physical and in the interval since the performance of the History & Physical I have noted the following changes of clinical significance: No changes noted battery implant
[2016-09-27] MEDS ORDERED: CEFAZOLIN IV 2,000 MG/60 ML D5W IV ONE (07:32)
[2016-09-27] MEDS ORDERED: NURSING VERBAL MED ORDER STA (07:33)
[2016-09-27] MEDS ORDERED: HYDROmorphone INJ 2 MG/ML SYR/VIAL ONE ×2 (08:04→08:27)
[2016-09-27] MEDS ORDERED: ROCURONIUM BROMIDE 10 MG/ML 5 ML VIAL ONE (08:07)
[2016-09-27] MEDS ORDERED: EpHEDrine SULFATE 50MG/5ML SYR ONE (08:07)
[2016-09-27] MEDS ORDERED: PROPOFOL IV EMULSION 10 MG/ML 20 ML VIAL IV ONE (08:07)
[2016-09-27] MEDS ORDERED: LIDOCAINE HCL 2% 2 ML VIAL (20MG/ML) ONE (08:07)
[2016-09-27] MEDS ORDERED: DEXAMETHASONE SOD INJ 4 MG/ML VIAL ONE (08:07)
[2016-09-27] MEDS ORDERED: BACITRACIN 50000 UNIT VIAL ONE (08:14)
[2016-09-27] MEDS ORDERED: BUPIVACAINE/EPINEPHRINE 0.5% MPF 1:200,000 30 ML VIAL ONE (08:14)
[2016-09-27] MEDS: BusPIRone 15 MG TAB PO SCH (08:18)
[2016-09-27] MEDS: GABAPENTIN 600 MG TAB PO SCH ×3 (08:19→20:56)
[2016-09-27] MEDS: ATORVASTATIN 10 MG TAB PO SCH (08:19)
[2016-09-27] MEDS: METOPROLOL TARTRATE 25 MG TAB PO SCH ×2 (08:19→20:56)
[2016-09-27] MEDS: DOCUSATE SODIUM 100 MG CAP PO SCH ×2 (08:19→20:56)
[2016-09-27] MEDS: BuPROPion XL 300 MG TABCR PO SCH (08:19)
[2016-09-27] MEDS: POLYETHYLENE (MIRALAX) 17 GM PACK PO SCH (08:19)
[2016-09-27] MEDS: OLANZAPINE 10 MG TAB PO SCH (08:19)
[2016-09-27] MEDS ORDERED: SODIUM CHLORIDE 0.9% 1000ML 1,000 ML IV SCH (08:22)
--- NOTE | 2016-09-27 08:22 | [facility] Operative Report ---
Operative Report Operative Date September 27, 2016. Pre-Operative Diagnosis Chronic back and leg pain Surgeon Dr. Kimbrough Bed Maker Surgeon(s) Mendy Giraldo PA-C Estimated Blood Loss 50ML Findings none Specimens A. Removed hardware (Spinal cord stimulator) I attest to the content of the Intraoperative Record and any orders documented therein. Any exceptions are noted below.
[2016-09-27] MEDS ORDERED: ONDANSETRON INJ 2 MG/ML 2 ML VIAL ONE (08:28)
[2016-09-27] MEDS ORDERED: GLYCOPYRROLATE INJ 0.2 MG/ML VIAL ONE (08:28)
[2016-09-27] MEDS ORDERED: NEOSTIGMINE METHYLSULFATE 1 MG/ML 10ML VIAL ONE (08:28)
[2016-09-27] MEDS ORDERED: KETOROLAC TROMETHAMINE 30 MG/ML VIAL ONE (08:28)
[2016-09-27] MEDS ORDERED: HYDROmorphone INJ 1 MG/ML SYR IV PRN ×2 (08:30→08:45)
[2016-09-27] MEDS ORDERED: MAGNESIUM HYDROXIDE SUSP 30 ML UDC PO PRN (08:30)
[2016-09-27] MEDS ORDERED: ACETAMINOPHEN 500 MG TAB PO PRN (08:30)
[2016-09-27] MEDS ORDERED: LORAZEPAM INJ 1 MG in SYRINGE 0 ML IV PRN (08:30)
[2016-09-27] MEDS ORDERED: DO NOT ADMINISTER FLU VACCINE PRN ×3 (08:30)
[2016-09-27] MEDS ORDERED: OXYCODONE HCL IR 5 MG TAB (IMMEDIATE RELEASE) PO PRN (08:30)
[2016-09-27] MEDS ORDERED: LORAZEPAM 1 MG TAB PO PRN (08:30)
[2016-09-27] MEDS ORDERED: DO NOT ADMINISTER PNEUMOCOCCAL VACCINE PRN ×2 (08:30)
[2016-09-27] MEDS ORDERED: EpHEDrine SULFATE INJ 50 MG/ML AMP IV PRN (08:45)
[2016-09-27] MEDS ORDERED: ONDANSETRON INJ 2 MG/ML 2 ML VIAL IV PRN (08:45)
[2016-09-27] MEDS ORDERED: ATROPINE SULFATE 0.1 MG/ML 5ML SYR IV PRN (08:45)
[2016-09-27] MEDS ORDERED: FENTANYL CITRATE INJ 50 MCG/1 ML 2 ML VIAL IV PRN (08:45)
[2016-09-27] MEDS ORDERED: MEPERIDINE HCL 25 MG/ML CARP IV PRN (08:45)
[2016-09-27] MEDS ORDERED: LABETALOL HCL IV 5 MG/ML 20ML IV PRN (08:45)
[2016-09-27] MEDS ORDERED: DOCUSATE SODIUM 100 MG CAP PO SCH (09:00)
[2016-09-27] MEDS ORDERED: POLYETHYLENE (MIRALAX) 17 GM PACK PO SCH (09:00)
--- NOTE | 2016-09-27 09:13 | Anesthesiology Progress Note ---
Anesthesia Post Op Note Date & Time September 27, 2016 at 09:13 Vital Signs Pain Intensity: 0 Vital Signs Past 12 Hours Date Time Temp Pulse Resp B/P Pulse Ox O2 Delivery O2 Flow Rate FiO2 09/27/16 09:05 67 13 120/69 92 Nasal Cannula 2 09/27/16 08:55 62 14 125/78 99 Mask 10 09/27/16 08:45 60 10 130/77 100 Mask 10 09/27/16 08:39 36.4 76 13 143/85 98 Mask 10 09/27/16 06:32 36.7 69 16 127/84 92 Room Air 09/26/16 23:13 Room Air 09/26/16 23:10 36.8 64 18 129/87 93 Room Air Notes Mental Status: alert / awake / arousable, participated in evaluation Pt Amnestic to Procedure: Yes Nausea / Vomiting: adequately controlled Pain: adequately controlled Airway Patency, RR, SpO2: stable & adequate BP & HR: stable & adequate Hydration State: stable & adequate Anesthetic Complications: no major complications apparent
--- NOTE | 2016-09-27 10:16 | OPERATIVE REPORT ---
DATE OF OPERATION: 09/27/2016 PREOPERATIVE DIAGNOSES: Chronic persistent back and bilateral leg pain. POSTOPERATIVE DIAGNOSES: Same. PROCEDURE PERFORMED: Spinal cord stimulator battery placement with formal leads. SURGEON: Dr. Skyler Kimbrough. PRODUCTION CONTROLLER: Mendy Giraldo PA-C. Due to the complex nature of the procedure, the entire surgery was performed with the surgeon's assistant of MIKE Trujillo. The corporate administrative assistant, under direct supervision, was involved in the actual performance of all aspects of the surgical procedure including hemostasis, tissue retraction and incision, instrument management, patient positioning, and wound closure. ANESTHESIA: General. DISPOSITION: The patient awakened and taken to PACU in stable condition. HISTORY OF PATIENT'S PROBLEMS: A 61-year-old male well known to me and having undergone successful trial with the dorsal column stimulator. We elected to go formalized placement and installation of rechargeable battery. Risks, benefits, pros, cons, and alternatives were outlined in detail preoperatively. DESCRIPTION OF PROCEDURE: The patient was met with preoperatively, the case discussed and all questions were addressed. At that point, the patient was taken back to operative suite and after undergoing successful general intubation by the department of anesthesia was placed in prone position on Shilo table atop Brett frame. All bony prominences were well padded and the eyes were inspected to ensure there was no external pressure placed upon them. At this point, the thoracolumbar spine was prepped and draped in normal sterile fashion. Sharp dissection was performed exposing the previous laminotomy site for the dorsal column stimulator paddle. The temporary leads were detached, released and pulled. The incision was then copiously irrigated with antibiotic solution. We then created a pocket over the right flank for the battery. A trocar was placed from the flank to the laminotomy site. The leads were passed into the battery site. The battery was attached tested to ensure it was working appropriately, then closed in the pocket on the right with Vicryl subcutaneously, 4-0 Monocryl for final skin closure. A 7 flat BEE drain was placed in the laminotomy site and closed with #1 Vicryl in the fascia, 2-0 Vicryl subcutaneously, 4-0 Monocryl for final skin closure. Steri-Strips and sterile dressing placed. The patient was awakened and taken to PACU in stable condition. I attest to the content of the Intraoperative Record and any orders documented therein. Any exceptio ns are noted below.
[2016-09-27] MEDS ORDERED: RXC5 PO (12:59)
--- NOTE | 2016-09-27 12:59 | Discharge Instructions ---
Discharge Instructions Date of Service September 27, 2016. Admission Reason for Admission: Chronic Lumbar & Bilateral Lower Extremity Pain; Discharge Discharge Diagnosis / Problem: stenosis Discharge Goals Goal(s): Improve function Activity Recommendations Activity Limitations: per Instructions/Follow-up section . Instructions / Follow-Up Instructions / Follow-Up ACTIVITY RECOMMENDATIONS: SELF CARE INSTRUCTIONS AFTER A LAMINECTOMY 1. No prolonged sitting (less than 30 minutes for the first 3 weeks after surgery). 2. No bending, lifting more than 5 pounds, or twisting (roll like a log when turning in bed). 3. You may shower 3 days after surgery if no drainage from wound. Thoroughly dry wound. Do not soak in the tub. 4. Please walk as much as you can for exercise. Gradually increase the distance that you walk as your endurance increases. 5. You may drive in 7-10 days if you are comfortable and no longer requiring pain medications. SPECIAL CARE INSTRUCTIONS: VERY IMPORTANT TO READ AND REVIEW A. Your surgical incision has been closed with a cosmetic suture under the skin that will dissolve in about 6 weeks. In 14 days, you can use a pair of clean scissors and cut the suture that is left outside of the skin at the ends of your incision. B. Complications are uncommon, but please contact us if you have any signs or symptoms of: 1. wound infection (fever higher than 102.5 degrees F, redness, separation of wound, drainage, or increasing pain from the incision) 2. blood clots in legs (pain, swelling, redness and warmth in legs) 3. urinary tract infection (fever higher than 102.5 degrees, burning upon urination or increased frequency of urination) 4. nerve problems (inability to walk on your toes or heels, numbness, loss of bowel or bladder control) 5. any other symptoms that concern you. C. Please call the office at if you have any concerns or questions about your operation or recovery. MANAGING PAIN AFTER SPINAL SURGERY 1. Narcotic medication is intended for short-term use and will be provided for surgical pain. Surgical pain usually lasts for a period of 4-6 weeks. Narcotic medication includes Percocet, Vicodin, Darvocet, Tylenol #3 or Lortab. 2. Longer-term pain is more appropriately treated with non-narcotic medication such as Tylenol ES. 3. Muscle spasm is not appropriately treated with narcotics. Muscle relaxers such as Soma, Flexeril or Skelaxin can be used along with Tylenol ES. 4. Remember that we all live with some "aches and pains". This is not unusual or uncommon after an injury or as we get older. 5. We will provide appropriate medication within the normal guidelines of their prescribed use. We will also be very cautious and aware of potential abuse and extended duration of patients' medication needs. 6. Please allow 2-3 days to process refills. Prescriptions will not be mailed but must be picked up at the office. FOLLOW UP VISIT: Keep your scheduled follow-up appointment. Any questions, please call the office at . Current Hospital Diet Patient's current hospital diet: Regular Diet Discharge Diet Recommended Diet: Regular Diet Procedures Procedures Performed: Spinal Cord Stimulator Implant Pending Studies Studies pending at discharge: no Medical Emergencies . Who to Call and When: Medical Emergencies: If at any time you feel your situation is an emergency, please call 911 immediately. . Non-Emergent Contact Non-Emergency issues call your: Primary Care Provider . "Provider Documentation" section prepared by Skyler Kimbrough. . VTE Core Measure Inpt VTE Proph given/why not?: Mo Cruz, SCD's
[2016-09-27] MEDS: DEXAMETHASONE INJ 6 MG in SYRINGE 0 ML IV SCH ×2 (13:43→22:04)
[2016-09-27] MEDS: CEFAZOLIN IV 2,000 MG in DEXTROSE 5% 50ML 50 ML IV SCH ×2 (15:58→23:27)
[2016-09-27] MEDS: LORAZEPAM 1 MG TAB PO PRN (20:56)
[2016-09-27] MEDS: AMITRIPTYLINE HCL 25 MG TAB PO SCH (22:04)
[2016-09-28 03:15] VITALS: BP 145/83; PULSE 72; TEMP 36.4; O2SAT 98
[2016-09-28] MEDS: DEXAMETHASONE INJ 6 MG in SYRINGE 0 ML IV SCH (05:36)
[2016-09-28] MEDS: LEVOTHYROXINE 75 MCG TAB PO SCH (05:36)
[2016-09-28 07:25] VITALS: BP 135/86; PULSE 74; TEMP 36.4; O2SAT 98
--- NOTE | 2016-09-28 08:11 | Anesthesiology Progress Note ---
Anesthesia Post Op Note Date & Time September 28, 2016 at 08:11 Vital Signs Pain Intensity: 4.0 Vital Signs Past 12 Hours Date Time Temp Pulse Resp B/P Pulse Ox O2 Delivery O2 Flow Rate FiO2 09/28/16 07:10 Room Air 09/28/16 03:15 36.4 72 18 145/83 98 Nasal Cannula 2.0 09/27/16 23:46 Nasal Cannula 2.0 09/27/16 23:25 36.5 72 18 133/85 89 09/27/16 20:52 100 137/81 Notes Mental Status: alert / awake / arousable, participated in evaluation Pt Amnestic to Procedure: Yes Nausea / Vomiting: adequately controlled Pain: adequately controlled Airway Patency, RR, SpO2: stable & adequate BP & HR: stable & adequate Hydration State: stable & adequate Anesthetic Complications: no major complications apparent
[2016-09-28] MEDS: OLANZAPINE 10 MG TAB PO SCH (08:35)
[2016-09-28] MEDS: GABAPENTIN 600 MG TAB PO SCH (08:35)
[2016-09-28] MEDS: ATORVASTATIN 10 MG TAB PO SCH (08:35)
[2016-09-28] MEDS: BuPROPion XL 300 MG TABCR PO SCH (08:36)
[2016-09-28] MEDS: BusPIRone 15 MG TAB PO SCH (08:36)
[2016-09-28] MEDS: POLYETHYLENE (MIRALAX) 17 GM PACK PO SCH (08:36)
[2016-09-28] MEDS: CEFAZOLIN IV 2,000 MG in DEXTROSE 5% 50ML 50 ML IV SCH (08:38)
[2016-09-28] MEDS: METOPROLOL TARTRATE 25 MG TAB PO SCH (09:26)
[2016-09-28] MEDS: DOCUSATE SODIUM 100 MG CAP PO SCH (09:26)
[2016-09-28 11:08] VITALS: BP 145/83; PULSE 72; TEMP 36.4; O2SAT 98
--- NOTE | 2016-09-29 04:37 | DISCHARGE SUMMARY ---
PREOPERATIVE DIAGNOSIS: Chronic persistent back and bilateral leg pain. HOSPITAL COURSE: On 09/22/2016, the patient underwent a dorsal column stimulator trial lead placement. Postop day 1, we felt that there was overstimulation to the cord and he was having some modest difficulty with balance, though neurologically intact. Subsequently, we repeated revision placement on 09/24/2016 involving more of a decompression and placement of dorsal column stimulator paddle lead. Postoperatively, he progressed very nicely. We watched him throughout the weekend, he continued to progress well, subsequently we went for formal implantation on 09/27/2016. He tolerated this well. On 09/28/2016, he was subsequently discharged to home. Discharge orders and instructions found on the chart for further review.
[2016-09-29] MEDS ORDERED: BISACODYL 10 MG SUPP PR PRN (06:00)
[2016-09-29] MEDS ORDERED: BISACODYL 5 MG TABEC PO PRN (06:00)
[2016-09-29] MEDS ORDERED: POLYETHYLENE (MIRALAX) 17 GM PACK PO SCH (09:00)
== END 2016-09-28 13:50 | disposition home or self-care (01) | DRG 29 ==
LOC: ENRESERVTM → ENRESERVDT → C.ACU 07:45 → C.3E 08:40
PROVIDERS: ADMIT Orthopaedic Surgery Orthopaedic Surgery of the Spine; ATTEND Orthopaedic Surgery Orthopaedic Surgery of the Spine
PROC: 00HV0MZ Insertion of Neurostimulator Lead into Spinal Cord, Open Approach (ICD-10-PCS; 2016-09-22)
PROC: 00PV0MZ Removal of Neurostimulator Lead from Spinal Cord, Open Approach (ICD-10-PCS; 2016-09-24)
PROC: 00HV0MZ Insertion of Neurostimulator Lead into Spinal Cord, Open Approach (ICD-10-PCS; 2016-09-24)
PROC: 01N80ZZ Release Thoracic Nerve, Open Approach (ICD-10-PCS; 2016-09-24)
PROC: 0JH Subcutaneous Tissue and Fascia, Insertion (ICD-10-PCS; principal; 2016-09-27 12:15)
PROC: 00HV0MZ Insertion of Neurostimulator Lead into Spinal Cord, Open Approach (ICD-10-PCS; principal; 2016-09-27 12:15)
PROC: 00PV0MZ Removal of Neurostimulator Lead from Spinal Cord, Open Approach (ICD-10-PCS; principal; 2016-09-27 12:15)
DX: G89.29 Other chronic pain (principal); M54.9 Dorsalgia, unspecified; M79.604 Pain in right leg; M79.605 Pain in left leg; N40.0 Benign prostatic hyperplasia without lower urinary tract symptoms; F32.9 Major depressive disorder, single episode, unspecified; G47.33 Obstructive sleep apnea (adult) (pediatric); E07.9 Disorder of thyroid, unspecified; Z96.659 Presence of unspecified artificial knee joint; G52.9 Cranial nerve disorder, unspecified; Z98.1 Arthrodesis status

== ENCOUNTER 2017-12-27 04:54 | Inpatient (IN) | payer BC ==
[2017-11-22 15:20] VITALS: BMI 38.0
[2017-11-29 12:50] VITALS: BMI 39.0
--- NOTE | 2017-11-29 12:57 | PAT Medication Instructions ---
Service Date Nov 29, 2017. Current Home Medication List Amitriptyline Hcl (Elavil), 25 MG PO HS Ascorbic Acid (Vitamin C), 1 TAB PO QAM Atorvastatin (Lipitor), 10 MG PO QAM Bupropion (Wellbutrin-Xl), 300 MG PO QAM Buspirone Hcl (Buspirone Hcl), 1 TAB PO QAM Chlorthalidone (Hygroton), 25 MG PO QAM Cholecalciferol (Vitamin D3), 1 TAB PO QAM Cyanocobalamin (Vitamin B12), 1 TAB PO QAM Fluticasone Propionate (Nasal) (Flonase Allergy Relief), 1 SPRAY NA UD PRN for prn Ibuprofen-Famotidine (Duexis), 1 TAB PO QAM Levothyroxine Sodium (Levothyroxine Sodium), 1 TAB PO QAM Metoprolol Tartrate (Lopressor) (Lopressor), 25 MG PO BID Mirtazapine Soltab (Remeron Soltab), 15 MG PO HS Olanzapine (Zyprexa), 10 MG PO QAM Tadalafil (Cialis), 5 MG PO QAM Tamsulosin Hcl (Flomax), 0.4 MG PO QAM Medication Instructions For Your Scheduled Surgery -Check with your surgeon for instructions for: Ibuprofen-Famotidine (Duexis), 1 TAB PO QAM - Hold the following medications the morning of surgery: Ascorbic Acid (Vitamin C), 1 TAB PO QAM Chlorthalidone (Hygroton), 25 MG PO QAM Cholecalciferol (Vitamin D3), 1 TAB PO QAM Cyanocobalamin (Vitamin B12), 1 TAB PO QAM Tadalafil (Cialis), 5 MG PO QAM - Take the following medications the morning of surgery with a sip of water: Atorvastatin (Lipitor), 10 MG PO QAM Bupropion (Wellbutrin-Xl), 300 MG PO QAM Buspirone Hcl (Buspirone Hcl), 1 TAB PO QAM Fluticasone Propionate (Nasal) (Flonase Allergy Relief), 1 SPRAY NA UD PRN for prn (if needed) Levothyroxine Sodium (Levothyroxine Sodium), 1 TAB PO QAM Metoprolol Tartrate (Lopressor) (Lopressor), 25 MG PO BID Olanzapine (Zyprexa), 10 MG PO QAM Tamsulosin Hcl (Flomax), 0.4 MG PO QAM - Take the following medications as scheduled the night before surgery: Amitriptyline Hcl (Elavil), 25 MG PO HS Fluticasone Propionate (Nasal) (Flonase Allergy Relief), 1 SPRAY NA UD PRN for prn (if needed) Metoprolol Tartrate (Lopressor) (Lopressor), 25 MG PO BID Mirtazapine Soltab (Remeron Soltab), 15 MG PO HS If you have any questions please call us at [phone] or [phone] or [phone]
--- NOTE | 2017-12-26 19:52 | History and Physical ---
History & Physical Date Dec 26, 2017. Chief Complaint Left hip pain and DJD History of Present Illness The patient is a 62 year old male with complaints of pain conservative treatment and laboratories, corticosteroid injections and home exercise/walking program as well as physical therapy. The patient's symptoms have progressed to the point where they are interfering with most daily activities and they no longer tolerate exercise programs. Pain and limited function have made it difficult to perform their activities of daily living. He continued to have significant pain swelling limited range of motion crepitation. There is felt all forms of conservative treatments and are requesting to proceed with total hip replacement surgery. Past Medical/Surgical History Medical Problems: (1) Back pain (2) Chronic back pain Hypertension Hyperlipidemia Hypothyroid Obstructive sleep apnea BPH Posterior spinal fusion Bilateral partial knee replacements Allergies Coded Allergies: No Known Allergies (Verified , 12/27/17) NKDA Home Medications Scheduled Amitriptyline Hcl (Elavil), 25 MG PO HS Ascorbic Acid (Vitamin C), 1 TAB PO QAM Atorvastatin (Lipitor), 10 MG PO QAM Bupropion (Wellbutrin-Xl), 300 MG PO QAM Buspirone Hcl (Buspirone Hcl), 1 TAB PO QAM Chlorthalidone (Hygroton), 25 MG PO QAM Cholecalciferol (Vitamin D3), 1 TAB PO QAM Cyanocobalamin (Vitamin B12), 1 TAB PO QAM Ibuprofen-Famotidine (Duexis), 1 TAB PO QAM Levothyroxine Sodium (Levothyroxine Sodium), 1 TAB PO QAM Metoprolol Tartrate (Lopressor) (Lopressor), 25 MG PO BID Mirtazapine Soltab (Remeron Soltab), 15 MG PO HS Olanzapine (Zyprexa), 10 MG PO QAM Tadalafil (Cialis), 5 MG PO QAM Tamsulosin Hcl (Flomax), 0.4 MG PO QAM Scheduled PRN Fluticasone Propionate (Nasal) (Flonase Allergy Relief), 1 SPRAY NA UD PRN for prn Physical Examination Skin: warm/dry, no rash Eyes: normal inspection, EOMI, sclerae normal ENT: normal ENT inspection, pharynx normal Head: normocephalic, atraumatic Neck: supple, no adenopathy, trachea midline Respiratory/Chest: lungs clear, normal breath sounds, no respiratory distress Cardiovascular: regular rate, rhythm, no edema, no murmur Abdomen / GI: normal bowel sounds, non tender Back: normal inspection Extremities: + pertinent finding (Left lower extremity is neurovascularly sensory intact, +2 DP pulse, + EHL/FHL/TA/GS, painful limited active and passive range of motion of the hip.) Diagnosis Severe left hip DJD Plan of Treatment I have indicated the patient for left posterior total hip arthroplasty. Risks, benefits and complications of this procedure include but not limited to infections, acute blood loss, blood clots, injury to surrounding soft tissue, nerves, vessels,, loss of function, chronic pain, hip dislocation, leg length discrepancy, failure of the prosthesis, need for additional surgery, cardiac and pulmonary events and . Patient agreed to proceed with surgical intervention and informed consent was obtained at this time. Clearances were obtained by cardiology as well as the patient's primary care provider on 11/26/2017 and 12/26/2017 respectively. Postoperatively we will plan for home health care upon discharge, aspirin twice daily for DVT prophylaxis. Multiple views of the left hip pelvis demonstrates severe left hip DJD with complete loss of the joint space, [id number] arthritis, + sclerosis, osteophytes and subchondral cysts.
[2017-12-27] VITALS (9 sets, daily range): BP systolic 96–129; BP diastolic 61–77; PULSE 64–74; TEMP 36.4–36.9; O2SAT 90–97; Ht 177.8 cm; Wt 122.3 kg
[~2017-12-27] VITALS: Ht 177.8 cm; Wt 122.3 kg
[~2017-12-27 04:54] MED LIST changes: -CEFAZOLIN 2000 MG/60 ML D5W IV SCH; +FLUT0.15; +IBUP1TAB51 PO; -LACTATED RINGER'S 1000ML 1,000 ML IV SCH; +LEVO75TA5 PO; -NRN/600 PO; -SYN75 PO; +TAMS0.4C38 PO; -TRAM-10 PO
[2017-12-27] MEDS ORDERED: CeleBREX 200 MG CAP PO SCH (06:00)
[2017-12-27] MEDS ORDERED: DEXAMETHASONE 4 MG TAB PO SCH (06:00)
[2017-12-27] MEDS ORDERED: METOCLOPRAMIDE HCL 10 MG TAB PO SCH (06:00)
[2017-12-27] MEDS ORDERED: LACTATED RINGER'S 1000ML 1,000 ML IV SCH (06:00)
[2017-12-27] MEDS ORDERED: FAMOTIDINE 20 MG TAB PO SCH (06:00)
[2017-12-27] MEDS ORDERED: ROPIVACAINE 5MG/ML 30 ML 150 MG, BUPIVACAINE 0.5% MPF INJ 30 ML, EpINEphrine HCL INJ 0.... INFIL SCH ×8 (06:00)
[2017-12-27] MEDS ORDERED: GABAPENTIN 600 MG PO SCH (06:00)
[2017-12-27] MEDS ORDERED: CEFAZOLIN 3000MG IV PUSH 22.5 ML IV SCH (06:00)
[2017-12-27] MEDS ORDERED: ACETAMINOPHEN 500 MG TAB PO SCH (06:00)
[2017-12-27] MEDS ORDERED: LACTATED RINGER'S 1000ML 500 ML IV SCH (06:00)
[2017-12-27] MEDS ORDERED: BUPIVACAINE 0.5 % 5 MG/1 ML PF 10ML VIAL ONE (06:29)
[2017-12-27] MEDS: TRANEXAMIC ACID INJ 1,000 MG x 2 Bags IV SCH ×4 (06:30→06:52)
[2017-12-27] MEDS ORDERED: ORTHO JOINT ANESTHETIC ONE (06:34)
[2017-12-27] MEDS ORDERED: BACITRACIN 50000 UNIT VIAL ONE (06:34)
[2017-12-27] MEDS ORDERED: POVIDONE-IODINE OP SOLN 30 ML BTL ONE (06:34)
--- NOTE | 2017-12-27 06:54 | History & Physical Bridge Note ---
H&P Re-Evaluation Bridge Note: I have examined the patient, reviewed the History & Physical and in the interval since the performance of the History & Physical I have noted the following changes of clinical significance: No changes noted
[2017-12-27] MEDS ORDERED: MIDAZOLAM HCL 1 MG/ML 2ML VIAL ONE (06:57)
[2017-12-27] MEDS ORDERED: FENTANYL CITRATE INJ 50 MCG/1 ML 2 ML VIAL ONE ×4 (06:57→08:36)
[2017-12-27] MEDS ORDERED: PROPOFOL IV EMULSION 10 MG/ML 20 ML VIAL ONE (07:43)
[2017-12-27] MEDS ORDERED: DEXAMETHASONE SOD INJ 4 MG/ML VIAL ONE (07:43)
[2017-12-27] MEDS ORDERED: LIDOCAINE HCL 2% 2 ML VIAL (20MG/ML) ONE (07:43)
[2017-12-27] MEDS ORDERED: MISSING PHYSICIAN SIGNATURE ON ORDER SCH (08:00)
[2017-12-27] MEDS ORDERED: ATROPINE SULFATE 0.1 MG/ML 5ML SYR IV PRN (08:30)
[2017-12-27] MEDS ORDERED: ONDANSETRON INJ 2 MG/ML 2 ML VIAL IV PRN ×2 (08:30→09:30)
[2017-12-27] MEDS ORDERED: EpHEDrine SULFATE INJ 50 MG/ML AMP IV PRN (08:30)
[2017-12-27] MEDS ORDERED: LABETALOL HCL IV 5 MG/ML 20ML IV PRN (08:30)
[2017-12-27] MEDS ORDERED: HYDROmorphone INJ 0.5 MG/0.5 ML SYR IV PRN (08:30)
[2017-12-27] MEDS ORDERED: MEPERIDINE HCL 25 MG/ML CARP IV PRN (08:30)
[2017-12-27] MEDS ORDERED: FENTANYL CITRATE INJ 50 MCG/1 ML 2 ML VIAL IV PRN (08:30)
--- NOTE | 2017-12-27 09:08 | [facility] Post Operative Brief Note ---
Immediate Operative Summary Operative Date Dec 27, 2017. Pre-Operative Diagnosis Severe left hip degenerative joint disease Post-Operative Diagnosis Same as preop Procedure(s) Performed Left Total Hip Arthroplasty, uncemented Surgeon Dr. Melara Airport Utility Worker Surgeon(s) Oscar Hill PA-C Estimated Blood Loss 125 cc Findings Consistent with Post-Op Diagnosis Fluids (cc crystalloids) 1500 Specimens A: left femoral head Drains None Anesthesia Type General Complication(s) none Disposition Disposition: Recovery Room / PACU Overlapping Procedure I was present for: the critical portions of procedure. I was immediately available: during the entire case Back up surgeon: was not required during procedure
[2017-12-27] MEDS ORDERED: GLYCOPYRROLATE INJ 0.2 MG/ML VIAL ONE (09:14)
[2017-12-27] MEDS ORDERED: NEOSTIGMINE METHYLSULFATE 5 MG/5 ML SYR ONE (09:14)
[2017-12-27] MEDS ORDERED: ONDANSETRON INJ 2 MG/ML 2 ML VIAL ONE (09:21)
[2017-12-27] MEDS ORDERED: ROCURONIUM BROMIDE 10 MG/ML 5 ML VIAL ONE (09:24)
--- NOTE | 2017-12-27 09:27 | [facility] Operative Report ---
Operative Report Operative Date Dec 27, 2017. Pre-Operative Diagnosis Severe left hip degenerative joint disease Post-Operative Diagnosis Same as preop Procedure(s) Performed Left Total Hip Arthroplasty, uncemented Surgeon Dr. Melara Strategy Planning Consultant Surgeon(s) Oscar Hill PA-C Estimated Blood Loss 125 cc Findings See dictated op note Fluids 1500 Specimens A: left femoral head Drains None Anesthesia Type General Complication(s) none Disposition Recovery Room / PACU Indications The patient is a 62-year-old male who presents with severe progressive left hip DJD who has failed outpatient conservative treatments. I indicated the patient for a total hip replacement and the risks and benefits were explained in detail which included but not limited to infection, bleeding, blood clot, damage to surrounding bone, nerves, vessels, soft tissue, hip dislocation, failure of the prosthesis, leg length discrepancy, need for additional surgery and . The patient agreed to proceed with replacement of the hip and informed consent was obtained. Appropriate clearances were obtained. Description of Procedure Following induction of adequate spinal anesthesia, the patient was transferred to the OR table and placed in lateral decubitus position with right hip down. The left hip was prepped and draped in the typical sterile fashion and a posterolateral/Anders-Langenbeck incision was made. Subcutaneous tissue was sharply dissected. Electrocautery was utilized for hemostasis. The fascia was incised throughout the length of the wound and retracted with the Charnley retractor. The bursa was taken down and the short external rotators were identified. The piriformis was tagged with #1 Vicryl. The short external rotators and capsule were divided from the posterior aspect of the femur using electrocautery. The posterior capsule was tagged with #1 Vicryl. Both external rotators and posterior capsule were swept posterior and protected, along with protecting the sciatic nerve. The hip was dislocated by flexion and internally rotation in a controlled manner and exposure of the femoral neck was gained with an old-style Hohmann and a blunt cobra retractor. A femoral cutting guide was utilized for making the appropriate level femoral neck cut with reciprocating saw. The femoral head was removed, measured and reserved on the back table. Next, attention was turned to the acetabulum. A posterior and anterior offset retractor was placed to gain adequate exposure. Acetabular labrum as well as posterior capsule elements were removed using electrocautery and forceps. Fovea centralis was cleared of all soft tissue. Sequential reaming was performed starting at 46 mm and carried up to a 53 mm and decision was made to proceed with impaction of a 54 mm trabecular metal cup. This was impacted and held using a single 35 mm bone screw. The trial acetabular liner was placed at this time. Next, attention was turned to the proximal femur where a Bovie and pickup was used to further clear short external rotators from their insertion on the femur. Box osteotome and canal finder was used to gain access to the femoral canal and the lateral reamer on power was used to further open the proximal lateral canal. Sequentially rasping was carried up to a 13.5 which gave good fit and fill of the proximal femur. A trial reduction was carried out with a standard offset femoral neck component a +0 mm femoral head. The trial reduction was stable in all degrees of rotation with no [id number] impingement. The hip was dislocated, trial components were removed and access to the acetabulum was re-established. The trial liner was removed and the cup was irrigated to ensure all debris was removed. The final acetabular liner was inserted and properly seated in the cup. Access to the femur was once more gained and the size 13.5 femoral stem with standard offset was impacted into position. The hip was once more assessed with the +0 mm femoral head. Stability was accessed and found to be excellent with equal leg lengths. The hip was dislocated for the last time and the final 35 x +0 ceramic femoral head was impacted in place and the hip was reduced. Range of motion was checked once again and found to be stable. The wound was copiously irrigated with sterile saline solution. The roel- incisional soft tissue was injected utilizing [facility] ortho mix which includes a combination of Ropivicaine 0.5% 150mg, Bupivicaine 0.5%/Epinephrine 1 :200,000 30ml, Toradol 30mg, Dexamethasone 4mg, Ketamine 10mg, Clonidine 100mcg and NSS 30ml Orthomix solution. The piriformis, external rotators and capsule were repaired to the greater trochanter through bone tunnels using #5 FiberWire. The fascia was closed using #1 Vicryl, subcutaneous tissue was closed using 2-0 Vicryl, and skin was closed with 3-0 V-lock suture and Dermabond Prineo. Sterile dressings were applied which included nidia, 4x4s and tegaderm adhesive dressing. The patient tolerated the procedure well and was transported to PACU in stable condition. Due to the complex nature of the procedure, the entire surgery was performed with the operational assistance of Kody Hill PA-C. The surgical physician assistant, under direct supervision, was involved in the actual performance of all aspects of the surgical procedure including patient positioning, hemostasis, tissue retraction, instrument management and wound closure. I attest to the content of the Intraoperative Record and any orders documented therein. Any exceptions are noted below.
[2017-12-27] MEDS ORDERED: MoRPHine SULFATE 4 MG/ML 1 ML CARP\\VIAL IV PRN (09:30)
[2017-12-27] MEDS ORDERED: OXYCODONE HCL IR 5 MG TAB (IMMEDIATE RELEASE) PO PRN (10:00)
--- NOTE | 2017-12-27 10:15 | Anesthesiology Progress Note ---
Anesthesia Post Op Note Date & Time Dec 27, 2017 at 10:15 Vital Signs Pain Intensity: 0 Vital Signs Past 12 Hours Date Time Temp Pulse Resp B/P (MAP) Pulse Ox O2 Delivery O2 Flow Rate FiO2 12/27/17 10:07 36.8 70 16 106/68 (82) 95 Nasal Cannula 2 12/27/17 10:03 67 9 96 12/27/17 10:03 67 9 12/27/17 10:01 121/89 12/27/17 09:58 68 8 97 12/27/17 09:58 68 8 12/27/17 09:57 70 14 95 12/27/17 09:57 70 14 12/27/17 09:56 112/79 12/27/17 09:52 71 18 97 12/27/17 09:52 36.2 77 16 126/79 97 Oxymask 10 12/27/17 09:52 71 18 12/27/17 09:51 120/77 12/27/17 09:47 73 18 12/27/17 09:47 73 18 96 12/27/17 09:46 107/84 12/27/17 09:44 125/86 12/27/17 05:27 36.7 64 18 129/67 96 Room Air Notes Mental Status: alert / awake / arousable, participated in evaluation Pt Amnestic to Procedure: Yes Nausea / Vomiting: adequately controlled Pain: adequately controlled Airway Patency, RR, SpO2: stable & adequate BP & HR: stable & adequate Hydration State: stable & adequate Anesthetic Complications: no major complications apparent
--- NOTE | 2017-12-27 10:52 | DIAGNOSTIC IMAGING REPORT ---
L PELVIS/UNILATERAL HIP 1 VIEW CLINICAL HISTORY: Postoperative evaluation. COMPARISON: None FINDINGS: Alignment of the total left hip arthroplasty is anatomic. There is an acetabular screw. No unexpected radiopaque foreign bodies are noted. There is no acute fracture. Lumbar spine hardware is noted. IMPRESSION: Expected findings following total left hip arthroplasty. Electronically signed by: Daniel Baron M.D. 12/27/2017 10:51 AM Dictated Date/Time: 12/27/2017 10:48 AM
[2017-12-27] MEDS: SODIUM CHLORIDE 0.9% 1000ML 1,000 ML IV SCH ×2 (12:08→21:25)
[2017-12-27] MEDS: TAMSULOSIN HCL 0.4 MG CAP PO SCH (12:37)
[2017-12-27] MEDS: ACETAMINOPHEN 500 MG TAB PO SCH ×2 (12:38→17:37)
[2017-12-27] MEDS: CHLORTHALIDONE 25 MG TAB PO SCH (12:39)
[2017-12-27] MEDS: BusPIRone 15 MG TAB PO SCH (12:40)
[2017-12-27] MEDS: ATORVASTATIN 10 MG TAB PO SCH (12:40)
[2017-12-27] MEDS: OLANZAPINE 10 MG TAB PO SCH (12:40)
[2017-12-27] MEDS: KETOROLAC TROMETHAMINE 30 MG/ML VIAL IV. SCH ×3 (12:41→23:55)
[2017-12-27] MEDS ORDERED: CEFAZOLIN 2000MG IV PUSH 15 ML IV SCH (14:00)
[2017-12-27] MEDS: CEFAZOLIN IV 2,000 MG in SYRINGE 0 ML IV SCH ×2 (14:30→21:25)
[2017-12-27] MEDS ORDERED: MIRTAZAPINE SOLTAB 15 MG PO SCH (21:00)
[2017-12-27] MEDS ORDERED: AMITRIPTYLINE HCL 25 MG TAB PO SCH (21:00)
[2017-12-27] MEDS ORDERED: SENNA 8.6 MG TAB PO SCH (21:00)
[2017-12-27] MEDS: DOCUSATE SODIUM 100 MG CAP PO SCH (21:25)
[2017-12-27] MEDS: METOPROLOL TARTRATE 25 MG TAB PO SCH (21:25)
[2017-12-27] MEDS: ASPIRIN 325 MG ECTAB PO SCH (21:26)
[2017-12-28 00:05] VITALS: O2SAT 96
[2017-12-28] MEDS: ACETAMINOPHEN 500 MG TAB PO SCH ×3 (01:49→17:07)
[2017-12-28 03:50] VITALS: BP 106/68; PULSE 66; TEMP 36.5; O2SAT 91
[2017-12-28] MEDS: SODIUM CHLORIDE 0.9% 1000ML 1,000 ML IV SCH (05:18)
[2017-12-28] MEDS ORDERED: LEVOTHYROXINE 75 MCG TAB PO SCH (06:00)
[2017-12-28] MEDS: KETOROLAC TROMETHAMINE 30 MG/ML VIAL IV. SCH (06:01)
[2017-12-28 06:48] LABS: BASO ABS # 0.01 K/uL (0-0.2); HEMATOCRIT 34.6 % (42-52); HEMOGLOBIN 12.2 g/dL (14.0-18.0); IG# 0.06 K/uL (0.00-0.02); LYMPH % 6.1 %; LYMPH ABS # 1.28 K/uL (1.2-3.4); MEAN CELL VOLUME 94.3 fL (80-100); MEAN CORPUSCULAR HEMOGLOBIN 33.2 pg (25-34); MEAN CORPUSCULAR HGB CONC 35.3 g/dl (32-36); MEAN PLATELET VOLUME 9.5 fL (7.4-10.4); MONO % 6.4 %; MONO ABS # 1.34 K/uL (0.11-0.59); NEUT % 87.2 %; NEUT ABS # 18.32 K/uL (1.4-6.5); PLATELET COUNT 263 K/uL (130-400); RED CELL DISTRIBUTION WIDTH CV 13.2 % (11.5-14.5); RED CELL DISTRIBUTION WIDTH SD 45.4 fL (36.4-46.3); WHITE BLOOD COUNT 21.01 K/uL (4.8-10.8)
[2017-12-28 07:05] VITALS: BP 119/74; PULSE 62; TEMP 36.6; O2SAT 92
[2017-12-28 07:23] LABS: CALCIUM 8.7 mg/dl (8.5-10.1); CREATININE 1.21 mg/dl (0.60-1.40); POTASSIUM 3.5 mmol/L (3.5-5.1)
--- NOTE | 2017-12-28 07:59 | Anesthesiology Progress Note ---
Anesthesia Post Op Note Date & Time Dec 28, 2017 at 07:59 Vital Signs Pain Intensity: 1.0 Vital Signs Past 12 Hours Date Time Temp Pulse Resp B/P (MAP) Pulse Ox O2 Delivery O2 Flow Rate FiO2 12/28/17 07:05 36.6 62 16 119/74 (89) 92 Room Air 12/28/17 03:50 36.5 66 16 106/68 (81) 91 Room Air 12/28/17 00:05 96 Room Air 2.0 12/27/17 22:58 36.4 65 18 118/70 (86) 92 Room Air Notes Mental Status: alert / awake / arousable, participated in evaluation Pt Amnestic to Procedure: Yes Nausea / Vomiting: adequately controlled Pain: adequately controlled Airway Patency, RR, SpO2: stable & adequate BP & HR: stable & adequate Hydration State: stable & adequate Neuraxial Anesthesia: was administered, sensory block resolved Anesthetic Complications: no major complications apparent
[2017-12-28] MEDS: METOPROLOL TARTRATE 25 MG TAB PO SCH (08:27)
[2017-12-28] MEDS: BusPIRone 15 MG TAB PO SCH (08:27)
[2017-12-28] MEDS: CHLORTHALIDONE 25 MG TAB PO SCH (08:27)
[2017-12-28] MEDS: DOCUSATE SODIUM 100 MG CAP PO SCH (08:28)
[2017-12-28] MEDS: ASPIRIN 325 MG ECTAB PO SCH (08:28)
[2017-12-28] MEDS: TAMSULOSIN HCL 0.4 MG CAP PO SCH (08:28)
[2017-12-28] MEDS: OLANZAPINE 10 MG TAB PO SCH (08:28)
[2017-12-28] MEDS: ATORVASTATIN 10 MG TAB PO SCH (08:29)
[2017-12-28] MEDS ORDERED: MULTIVITAMIN TAB PO SCH (09:00)
[2017-12-28] MEDS ORDERED: BuPROPion XL 300 MG TABCR PO SCH (09:00)
[2017-12-28] MEDS ORDERED: PANTOprazole SOD 40 MG TAB PO SCH (09:00)
--- NOTE | 2017-12-28 09:25 | Orthopedic Progress Note ---
Orthopedic Progress Note Date of Service Dec 28, 2017. Subjective Additional Notes: Postoperative progress note Patient was seen resting comfortably in his bed on the medical surgical floor postoperatively, comfortable, pain well controlled, no acute issues. Objective Left lower extremity is neurovascularly sensory intact, +2 dorsalis pedis pulse , capillary refill less than 2 seconds, compartments soft nontender, dressing clean dry and intact. Date Time Temp Pulse Resp B/P (MAP) Pulse Ox O2 Delivery O2 Flow Rate FiO2 12/28/17 08:10 Room Air 12/28/17 07:05 36.6 62 16 119/74 (89) 92 Room Air 12/28/17 03:50 36.5 66 16 106/68 (81) 91 Room Air 12/28/17 00:05 96 Room Air 2.0 12/27/17 22:58 36.4 65 18 118/70 (86) 92 Room Air 12/27/17 19:10 36.5 71 18 125/71 (89) 95 Room Air 12/27/17 16:00 Room Air 12/27/17 15:16 36.5 65 18 98/61 (73) 94 Room Air 12/27/17 13:39 36.8 74 16 104/70 (81) 90 Room Air 12/27/17 12:30 36.4 68 16 96/61 (73) 90 Room Air 12/27/17 11:38 36.6 64 16 110/74 (86) 97 Nasal Cannula 2.0 12/27/17 11:01 36.6 70 16 118/77 (91) 92 Nasal Cannula 2.0 12/27/17 10:30 Nasal Cannula 2.0 12/27/17 10:30 36.9 69 18 115/75 (88) 92 Nasal Cannula 2.0 12/27/17 10:30 Nasal Cannula 2.0 12/27/17 10:19 70 16 12/27/17 10:19 70 16 95 12/27/17 10:16 123/77 12/27/17 10:14 68 12 12/27/17 10:14 67 12 93 12/27/17 10:11 106/68 12/27/17 10:09 73 16 12/27/17 10:09 72 16 94 12/27/17 10:07 36.8 70 16 106/68 (82) 95 Nasal Cannula 2 12/27/17 10:06 110/74 8/7/18 10:04 71 10 98 12/27/17 10:04 71 10 12/27/17 10:03 67 9 96 12/27/17 10:03 67 9 12/27/17 10:01 121/89 12/27/17 09:58 68 8 97 12/27/17 09:58 68 8 12/27/17 09:57 70 14 95 12/27/17 09:57 70 14 12/27/17 09:56 112/79 12/27/17 09:52 71 18 97 12/27/17 09:52 36.2 77 16 126/79 97 Oxymask 10 12/27/17 09:52 71 18 12/27/17 09:51 120/77 12/27/17 09:47 73 18 12/27/17 09:47 73 18 96 12/27/17 09:46 107/84 12/27/17 09:44 125/86 Laboratory Results 24 Hours: Test 12/28/17 06:31 White Blood Count 21.01 K/uL Red Blood Count 3.67 M/uL Hemoglobin 12.2 g/dL Hematocrit 34.6 % Mean Corpuscular Volume 94.3 fL Mean Corpuscular Hemoglobin 33.2 pg Mean Corpuscular Hemoglobin Concent 35.3 g/dl Platelet Count 263 K/uL Mean Platelet Volume 9.5 fL Neutrophils (%) (Auto) 87.2 % Lymphocytes (%) (Auto) 6.1 % Monocytes (%) (Auto) 6.4 % Eosinophils (%) (Auto) 0.0 % Basophils (%) (Auto) 0.0 % Neutrophils # (Auto) 18.32 K/uL Lymphocytes # (Auto) 1.28 K/uL Monocytes # (Auto) 1.34 K/uL Eosinophils # (Auto) 0.00 K/uL Basophils # (Auto) 0.01 K/uL Prothromb Time International Ratio 1.0 Prothrombin Time 10.5 SECONDS Assessment & Plan Assessment: Status post left posterior total hip arthroplasty Plan: -Ancef 24 -DVT prophylaxis aspirin twice daily -Weight-bear as tolerates left lower extremity -Posterior hip precautions -A.m. labs -PT OT -Postoperative x-ray demonstrates well aligned well fixed total hip prosthesis without evidence of fracture or dislocation. -DC planning home with home care
--- NOTE | 2017-12-28 09:26 | Orthopedic Progress Note ---
Orthopedic Progress Note Date of Service Dec 28, 2017. Subjective Additional Notes: Postoperative day #1 progress note Patient was seen resting comfortably in bed, reports being up with physical therapy, reports soreness however pain much improved compared to preoperative. No acute issues overnight. Objective Left lower extremity is neurovascular sensory intact, +2 dorsalis pedis pulse, capillary refill less than 2 seconds, dressing clean dry and intact, compartments soft nontender Date Time Temp Pulse Resp B/P (MAP) Pulse Ox O2 Delivery O2 Flow Rate FiO2 12/28/17 08:10 Room Air 12/28/17 07:05 36.6 62 16 119/74 (89) 92 Room Air 12/28/17 03:50 36.5 66 16 106/68 (81) 91 Room Air 12/28/17 00:05 96 Room Air 2.0 12/27/17 22:58 36.4 65 18 118/70 (86) 92 Room Air 12/27/17 19:10 36.5 71 18 125/71 (89) 95 Room Air 12/27/17 16:00 Room Air 12/27/17 15:16 36.5 65 18 98/61 (73) 94 Room Air 12/27/17 13:39 36.8 74 16 104/70 (81) 90 Room Air 12/27/17 12:30 36.4 68 16 96/61 (73) 90 Room Air 12/27/17 11:38 36.6 64 16 110/74 (86) 97 Nasal Cannula 2.0 12/27/17 11:01 36.6 70 16 118/77 (91) 92 Nasal Cannula 2.0 12/27/17 10:30 Nasal Cannula 2.0 12/27/17 10:30 36.9 69 18 115/75 (88) 92 Nasal Cannula 2.0 12/27/17 10:30 Nasal Cannula 2.0 12/27/17 10:19 70 16 12/27/17 10:19 70 16 95 12/27/17 10:16 123/77 12/27/17 10:14 68 12 12/27/17 10:14 67 12 93 12/27/17 10:11 106/68 12/27/17 10:09 73 16 12/27/17 10:09 72 16 94 12/27/17 10:07 36.8 70 16 106/68 (82) 95 Nasal Cannula 2 12/27/17 10:06 110/74 12/27/17 10:04 71 10 98 12/27/17 10:04 71 10 12/27/17 10:03 67 9 96 12/27/17 10:03 67 9 12/27/17 10:01 121/89 12/27/17 09:58 68 8 97 12/27/17 09:58 68 8 12/27/17 09:57 70 14 95 12/27/17 09:57 70 14 12/27/17 09:56 112/79 12/27/17 09:52 71 18 97 12/27/17 09:52 36.2 77 16 126/79 97 Oxymask 10 12/27/17 09:52 71 18 12/27/17 09:51 120/77 12/27/17 09:47 73 18 12/27/17 09:47 73 18 96 12/27/17 09:46 107/84 12/27/17 09:44 125/86 Laboratory Results 24 Hours: Test 12/28/17 06:31 White Blood Count 21.01 K/uL Red Blood Count 3.67 M/uL Hemoglobin 12.2 g/dL Hematocrit 34.6 % Mean Corpuscular Volume 94.3 fL Mean Corpuscular Hemoglobin 33.2 pg Mean Corpuscular Hemoglobin Concent 35.3 g/dl Platelet Count 263 K/uL Mean Platelet Volume 9.5 fL Neutrophils (%) (Auto) 87.2 % Lymphocytes (%) (Auto) 6.1 % Monocytes (%) (Auto) 6.4 % Eosinophils (%) (Auto) 0.0 % Basophils (%) (Auto) 0.0 % Neutrophils # (Auto) 18.32 K/uL Lymphocytes # (Auto) 1.28 K/uL Monocytes # (Auto) 1.34 K/uL Eosinophils # (Auto) 0.00 K/uL Basophils # (Auto) 0.01 K/uL Prothromb Time International Ratio 1.0 Prothrombin Time 10.5 SECONDS Assessment & Plan Assessment: Status post left posterior total hip arthroplasty Postoperative day #1 Plan: -Ancef 24 -DVT prophylaxis aspirin twice daily -Weight-bear as tolerates left lower extremity -Posterior hip precautions -A.m. labs -hemoglobin 12.2 -PT OT -Postoperative x-ray demonstrates well aligned well fixed total hip prosthesis without evidence of fracture or dislocation. -DC planning home with home care, anticipation discharge today
[2017-12-28 11:07] VITALS: BP 113/69; PULSE 63; TEMP 36.7; O2SAT 93
--- NOTE | 2017-12-28 11:21 | Discharge Instructions ---
Discharge Instructions Date of Service Dec 28, 2017. Admission Reason for Admission: Left Hip Osteoarthritis Discharge Discharge Diagnosis / Problem: Left Hip Osteoarthritis Discharge Goals Goal(s): Decrease discomfort, Improve function, Increase independence Activity Recommendations Activity Limitations: per Instructions/Follow-up section Weightbearing Status: Left weightbearing (as tolerated) . Instructions / Follow-Up Instructions / Follow-Up ACTIVITY RECOMMENDATIONS: SELF CARE INSTRUCTIONS AFTER TOTAL HIP REPLACEMENT Until the incision and soft tissues around your hip have healed, there is a possibility that the hip prosthesis could dislocate. A. Observe the following precautions to prevent dislocation: 1. Don't bend your hip greater than 90 degrees. 2. Avoid crossing your legs or ankles while standing or lying. 3. Sit with your feet placed 6 inches apart. 4. When sitting, keep your knees below your hips. Sit on a firm surface, avoid deep, soft chairs and couches. Use an elevated toilet seat in the bathroom. 5. Don't bend over at the waist. Use a long handled shoehorn and a sock aid to help you put on your shoes and socks. A skid wrapper can help you picker box operator objects that are too high or too low to reach. 6. Keep car riding to a minimum for at least one month after surgery. B. Your balance may be shaky for a while. Use crutches or a walker until directed by your doctor. C. Use hand rails when walking on stairs. D. Wear low heeled shoes with non-slip soles. E. Be sure that your floors are free of things that could trip you - throw rugs , electrical cords, small objects. Avoid wet and waxed floors, especially with crutches and canes. F. Try to walk several times a day with rest periods between. G. Continue with all the exercises taught to you in the hospital. Again, make walking a part of your daily routine. SPECIAL CARE INSTRUCTIONS: VERY IMPORTANT TO READ AND REVIEW A. You may still be at risk for phlebitis and blood clots. 1. Wear surgical stockings (AMIE hose) for 2 weeks after surgery to improve circulation and reduce swelling. 2. Take Aspirin 325mg twice daily for 4 weeks or as directed by your doctor. This is your blood thinner. 3. High risk patients may be prescribed a stronger blood thinner if necessary. 4. If you are on Coumadin normally, your family doctor/rivet flunky should monitor your blood work. Expect a phone call the day of or the day after bloodwork is drawn to adjust your dosage. B. You must take antibiotics before having dental work, bladder, bowel and other surgery. Your doctor will provide you with a permanent card to carry describing precautions. C. Call [facility] if you have a fever, redness or swelling around the incision, cloudy drainage from incision, or sudden increase in pain in your hip, not relieved by your regular pain medication. D. Please call the office at if you have any concerns or questions about your operation or recovery. * YOU MAY SHOWER, NO TUB BATHS UNTIL CLEARED BY YOUR DOCTOR. * WEAR AMIE HOSE 20 HOURS PER DAY FOR 2 WEEKS. * YOU SHOULD USE A WALKER OR CRUTCHES FOR 2-4 WEEKS. THIS WILL HELP PREVENT STRAIN ON YOUR HIP MUSCLE AND ALLOW IT TO HEAL PROPERLY. YOU MAY WEAN TO A CANE TOLERATED. * MOST PATIENTS WILL HAVE HOME NURSING FOR THERAPY. IF YOU DECIDE TO DO OUTPATIENT PHYSICAL THERAPY, PLEASE SCHEDULE THIS 3 TIMES PER WEEK. * DERMABOND Prineo- This is a mesh tape dressing that is covered with glue. It should remain in place until the incision is properly healed, usually 10-14 days. This dressing is designed to naturally slough off. You may trim the excess mesh tape as it peels off. Incision may be briefly wet in a shower. Dry immediately by blotting with a clean, dry towel. Do not bath or swim until instructed by your doctor. Do not scratch, rub, or pick at the dressing. Do not apply any topical ointments or lotions until dressing is completely removed and/or instructed by your doctor. There may be a small piece of suture material at one end of your incision. Do not pull or trim this. If it is bothersome or catching on clothing, you may cover it with a band-aid. . FOLLOW UP VISIT: If appointment is not already scheduled: Please call [facility] to make a follow-up appointment for 2 weeks after your surgery at . Current Hospital Diet Patient's current hospital diet: Regular Diet Discharge Diet Recommended Diet: Regular Diet Procedures Procedures Performed: Left Total Hip Arthroplasty, uncemented Pending Studies Studies pending at discharge: no Laboratory Results Hemoglobin A1c Test 11/29/17 13:11 Range/Units Estimated Average Glucose 108 mg/dl Hemoglobin A1c 5.4 4.5-5.6 % Medical Emergencies . Who to Call and When: Medical Emergencies: If at any time you feel your situation is an emergency, please call 911 immediately. . Non-Emergent Contact Non-Emergency issues call your: Surgeon Call Non-Emergent contact if: temperature is above 101.5, your pain is not controlled, your pain is worsening, wound has increased drainage, wound has increased redness . "Provider Documentation" section prepared by Kody Hill. . [place] Drug Monitoring Program Search Results: patient reviewed within database, no issues identified
[2017-12-28] MEDS ORDERED: ASPEC325 PO (12:08)
[2017-12-28] MEDS ORDERED: RXC5 PO (12:08)
[2017-12-28] MEDS ORDERED: ACET-24 PO (12:08)
[2017-12-28] MEDS ORDERED: CLB200 PO (12:08)
[2017-12-28 15:34] VITALS: BP 121/77; PULSE 63; TEMP 37; O2SAT 96
[2017-12-28] MEDS ORDERED: CeleBREX 200 MG CAP PO SCH (21:00)
--- NOTE | 2018-01-03 18:18 | DISCHARGE SUMMARY ---
DISCHARGE DIAGNOSIS: Degenerative joint disease, left hip. SECONDARY DIAGNOSES: Hypertension, hyperlipidemia, hypothyroidism, obstructive sleep apnea, BPH, chronic back pain. CONSULTS: None. COMPLICATIONS: None. PROCEDURES: Left total hip arthroplasty performed by Dr. Melara on 12/27/2017. BRIEF HISTORY: As dictated in history and physical. HOSPITAL SUMMARY: Patient was admitted on the above-noted date and had by above-noted surgery performed which he tolerated well. On his first postoperative day, he was resting comfortably in bed and had been up with his physical therapy. He had some soreness in the hip, but was much improved over time and had no acute issues overnight. Left lower extremity was neurovascularly and sensory intact. Pulses intact. Dressings clean, dry and intact and compartments were soft. Vital signs were stable. He was afebrile. Hemoglobin was 12.2 and he was remaining very stable. He was otherwise progressing well to his physical therapy and it was felt that he could be discharged to home on 12/28/2017. For further review, please see chart. LAB AND X-RAY DATA: As per chart. DISCHARGE INSTRUCTIONS: Patient was to discharged home in satisfactory condition on 12/28/2017. DIET: Regular. ACTIVITY: Weightbearing as tolerated left lower extremity. Follow [facility] instruction sheets and special care instructions as noted. Follow up with Dr. Melara in 2 weeks. Patient to call for appointment if one was not made prior to surgery. DISCHARGE MEDICATIONS: Acetaminophen 1000 mg p.o. q. 8 hours for 21 days, aspirin 325 mg p.o. b.i.d., Celebrex 200 mg p.o. b.i.d., oxycodone 5 mg p.o. q. 4-6 hours p.r.n. Resume home meds as listed and stop taking ibuprofen.
== END 2017-12-28 18:15 | disposition home health service (06) | DRG 470 ==
LOC: C.ACU 04:54 → C.3E 06:35 → ENRESERV 10:03
PROVIDERS: ADMIT Orthopaedic Surgery; ATTEND Orthopaedic Surgery
PROC: 0SRB01A Replacement of Left Hip Joint with Metal Synthetic Substitute, Uncemented, Open Approach (ICD-10-PCS; principal; 2017-12-27 07:00)
DX: M16.12 Unilateral primary osteoarthritis, left hip (principal); I10 Essential (primary) hypertension; E78.5 Hyperlipidemia, unspecified; G47.33 Obstructive sleep apnea (adult) (pediatric); N40.0 Benign prostatic hyperplasia without lower urinary tract symptoms; Z98.1 Arthrodesis status; Z96.653 Presence of artificial knee joint, bilateral